=== PATIENT | female | born 1960 | race Caucasian/White ===

== ENCOUNTER 2017-12-02 19:03 | Emergency (ER) | payer OTHER ==
[~2017-12-02] VITALS: Ht 165.1 cm; Wt 104.3 kg
[~2017-12-02 19:03] MED LIST: ACCUNEB SO1.25 MG/1; ADVAIR 100-501 EACH; ADVAIR 100-501 EACH INH; FLONASE 0.05%50 MCG NASAL; MUCINEX D TABL1 EAC1; PREDNISONE 20 M20 M1 PO; PROVENTIL HFA6.7 G1 INH
[2017-12-02] MEDS ORDERED: LOSARTAN-HCTZ1 EAC3 PO (19:24)
[2017-12-02] MEDS ORDERED: SYMBICORT160 MCG/4. INH (19:24)
[2017-12-02] MEDS ORDERED: VENTOLIN HFA 1818 GM INH (19:24)
[2017-12-02] MEDS ORDERED: VITAMIN D1000 UNI1 PO (19:25)
[2017-12-02] MEDS ORDERED: ASPIR 8181 MG PO (19:25)
[2017-12-02 20:56] VITALS: BP 140/77
== END 2017-12-02 20:57 | disposition home or self-care (01) ==
LOC: ER 19:03
DX: S61.421A Laceration with foreign body of right hand, initial encounter (principal); J45.909 Unspecified asthma, uncomplicated; W26.8XXA Contact with other sharp object(s), not elsewhere classified, initial encounter; Y93.E1 Activity, personal bathing and showering; Y92.89 Other specified places as the place of occurrence of the external cause; Y99.8 Other external cause status

== ENCOUNTER 2020-01-25 13:54 | Emergency (ER) | payer OTHER ==
[~2020-01-25] VITALS: Ht 165.1 cm; Wt 102.1 kg
[~2020-01-25 13:54] MED LIST changes: +ASPIR 8181 MG PO; +LOSARTAN-HCTZ1 EAC3 PO; +SYMBICORT160 MCG/4. INH; +VENTOLIN HFA 1818 GM INH; +VITAMIN D1000 UNI1 PO
[2020-01-25] MEDS ORDERED: ULTRAM 50MG TAB50 MG PO (17:19)
[2020-01-25 17:30] VITALS: BP 155/74
== END 2020-01-25 17:30 | disposition home or self-care (01) ==
LOC: ER 13:54
DX: S52.512A Displaced fracture of left radial styloid process, initial encounter for closed fracture (principal); I10 Essential (primary) hypertension; J45.909 Unspecified asthma, uncomplicated; Z79.82 Long term (current) use of aspirin; Z79.899 Other long term (current) drug therapy; W01.0XXA Fall on same level from slipping, tripping and stumbling without subsequent striking against object, initial encounter; Y93.89 Activity, other specified; Y92.480 Sidewalk as the place of occurrence of the external cause; Y99.8 Other external cause status